=== PATIENT | male | born 1985 | race Caucasian/White ===

== ENCOUNTER 2017-03-31 00:07 | Emergency (ER) | payer OTHER ==
[~2017-03-31] VITALS: Ht 185.4 cm; Wt 77.0 kg
[2017-03-31 00:43] VITALS: BP 122/81
== END 2017-03-31 00:46 | disposition home or self-care (01) ==
LOC: EME 00:07
DX: S61.233A Puncture wound without foreign body of left middle finger without damage to nail, initial encounter (principal); Z77.21 Contact with and (suspected) exposure to potentially hazardous body fluids; W26.8XXA Contact with other sharp object(s), not elsewhere classified, initial encounter; Y92.239 Unspecified place in hospital as the place of occurrence of the external cause; Y99.0 Civilian activity done for income or pay
CPT/HCPCS: 99281; 99283